=== PATIENT | female | born 1935 | race Caucasian/White ===

== ENCOUNTER → 2018-04-25 | Outpatient (CLI) | payer MEDICARE, BC ==
--- NOTE | 2018-04-25 13:24 | MM ---
Reason for exam: additional evaluation requested from prior study. Last mammogram was performed 3 years and 2 months ago. History: Patient is postmenopausal and has history of breast cancer at age 52. Family history of breast cancer in sister at age 52. Excisional biopsy of the right breast, 1990. Mastectomy of the left breast, 1986. Physical Findings: Nurse did not find any significant physical abnormalities on exam. MG 3D Diag Mammo W/Cad RT CC and MLO view(s) were taken of the right breast. Prior study comparison: February 20, 2015, right breast MG diagnostic mammo RT w CAD. February 13, 2014, right breast MG diagnostic mammo RT w CAD. The breast tissue is heterogeneously dense. This may lower the sensitivity of mammography. There are benign appearing round calcifications in the right breast. There is chronic nodularity in the right breast. There is no discrete abnormality. These results were verbally communicated with the patient and result sheet given to the patient on 04/25/18. ASSESSMENT: Benign, BI-RAD 2 RECOMMENDATION: Follow-up diagnostic mammogram of the right breast in 1 year.
== END ==
LOC: RADMAMWWP 12:30
PROVIDERS: ATTEND Internal Medicine Geriatric Medicine
DX: Z08 Encounter for follow-up examination after completed treatment for malignant neoplasm (principal); Z85.3 Personal history of malignant neoplasm of breast
CPT/HCPCS: 77065; G0279; 77061

== ENCOUNTER → 2019-06-14 | Outpatient (CLI) | payer MEDICARE, BC ==
--- NOTE | 2019-06-14 14:08 | MM ---
Reason for exam: additional evaluation requested from prior study. Last mammogram was performed 1 year and 2 months ago. History: Patient is postmenopausal and has history of breast cancer at age 52. Family history of breast cancer in sister at age 52. Excisional biopsy of the right breast, 1990. Mastectomy of the left breast, 1986. Physical Findings: Nurse did not find any significant physical abnormalities on exam. MG 3D Diag Mammo W/Cad RT CC and MLO view(s) were taken of the right breast. Prior study comparison: April 25, 2018, right breast MG 3d diag mammo w/cad RT. February 20, 2015, right breast MG diagnostic mammo RT w CAD. There are scattered fibroglandular densities. No suspicious abnormality. No significant new findings when compared with previous films. These results were verbally communicated with the patient and result sheet given to the patient on 06/14/19. ASSESSMENT: Negative, BI-RAD 1 RECOMMENDATION: Follow-up diagnostic mammogram of the right breast in 1 year.
== END | disposition home or self-care (01) ==
LOC: RADMAMWWP 12:55
PROVIDERS: ATTEND Internal Medicine Geriatric Medicine
DX: Z08 Encounter for follow-up examination after completed treatment for malignant neoplasm (principal); Z85.3 Personal history of malignant neoplasm of breast
CPT/HCPCS: 77065; G0279; 77061

== ENCOUNTER → 2020-08-20 | Outpatient (CLI) | payer MEDICARE, BC ==
--- NOTE | 2020-08-20 11:46 | MM ---
Reason for exam: additional evaluation requested from prior study. Last mammogram was performed 1 year and 2 months ago. History: Patient is postmenopausal and has history of breast cancer at age 52. Family history of breast cancer in sister at age 52. Excisional biopsy of the right breast, 1990. Mastectomy of the left breast, 1986. Physical Findings: Nurse did not find any significant physical abnormalities on exam. MG 3D Diag Mammo W/Cad RT CC and MLO view(s) were taken of the right breast. Prior study comparison: June 14, 2019, right breast MG 3d diag mammo w/cad RT. April 25, 2018, right breast MG 3d diag mammo w/cad RT. The breast tissue is heterogeneously dense. This may lower the sensitivity of mammography. No significant new findings when compared with previous films. These results were verbally communicated with the patient and result sheet given to the patient on 08/20/20. ASSESSMENT: Negative, BI-RAD 1 RECOMMENDATION: Routine screening mammogram of the right breast in 1 year.
== END | disposition home or self-care (01) ==
LOC: RADMAMWWP 10:55
PROVIDERS: ATTEND Internal Medicine Geriatric Medicine
DX: R92.2 Inconclusive mammogram (principal); Z78.0 Asymptomatic menopausal state; Z80.3 Family history of malignant neoplasm of breast; Z85.3 Personal history of malignant neoplasm of breast
CPT/HCPCS: 77065; G0279; 77061

== ENCOUNTER → 2020-11-27 | Outpatient (CLI) | payer MEDICARE, BC ==
[2020-11-28 06:21] LABS: Thyroid Peroxidase Antibodies 29.8 U/mL (0.0-60.0)
== END | disposition home or self-care (01) ==
LOC: LABWHC1 14:24
PROVIDERS: ATTEND Internal Medicine Endocrinology, Diabetes & Metabolism
DX: E04.2 Nontoxic multinodular goiter (principal); E03.9 Hypothyroidism, unspecified
CPT/HCPCS: 36415; 84439; 84443; 86376; 86800

== ENCOUNTER → 2021-09-10 | Outpatient (CLI) | payer MEDICARE, BC ==
--- NOTE | 2021-09-11 12:17 | MM ---
Reason for exam: screening (asymptomatic). Last mammogram was performed 1 year and 1 month ago. History: Patient is postmenopausal and has history of breast cancer at age 52. Family history of breast cancer in sister at age 52. Excisional biopsy of the right breast, 1990. Mastectomy of the left breast, 1986. Physical Findings: A clinical breast exam by your physician is recommended on an annual basis and results should be correlated with mammographic findings. MG 3D Scr Darcy Unilateral W/Cad CC and MLO view(s) were taken of the right breast. Prior study comparison: August 20, 2020, right breast MG 3d diag mammo w/cad RT. June 14, 2019, right breast MG 3d diag mammo w/cad RT. There are scattered fibroglandular densities. There are benign appearing round calcifications in the right breast. There is chronic nodularity in the right breast anteriorly, stable. There is no new dominant lesion. ASSESSMENT: Benign, BI-RAD 2 RECOMMENDATION: Routine screening mammogram of the right breast in 1 year.
== END | disposition home or self-care (01) ==
LOC: RADMAMWWP 11:02
PROVIDERS: ATTEND Internal Medicine Geriatric Medicine
DX: Z12.31 Encounter for screening mammogram for malignant neoplasm of breast (principal); R92.8 Other abnormal and inconclusive findings on diagnostic imaging of breast
CPT/HCPCS: 77067

== ENCOUNTER → 2021-10-23 | Outpatient (CLI) | payer MEDICARE, BC ==
[2021-10-23 09:21] LABS: ALT 19 U/L (4-34); AST 29 U/L (14-36); African American GFR (CKD) >90 (>60 ml/min/1.73 sqM); Albumin 4.6 g/dL (3.5-5.0); Alkaline Phosphatase 96 U/L (38-126); Anion Gap 12 mmol/L; Blood Urea Nitrogen 16 mg/dL (7-17); Calcium 9.3 mg/dL (8.4-10.2); Carbon Dioxide 25 mmol/L (22-30); Chloride 100 mmol/L (98-107); Glucose 73 mg/dL (74-99); Non-African American GFR(CKD) 82 (>60 ml/min/1.73 sqM); Potassium 4.8 mmol/L (3.5-5.1); Sodium 137 mmol/L (137-145); Total Bilirubin 0.5 mg/dL (0.2-1.3); Total Protein 7.5 g/dL (6.3-8.2)
[2021-10-23 09:35] LABS: Basophils # (A) 0.1 k/uL (0-0.2); Basophils % (A) 1 %; Eosinophils # (A) 0.2 k/uL (0-0.7); Eosinophils % (A) 4 %; HCT 45.1 % (34.0-46.0); HGB 13.9 gm/dL (11.4-16.0); Hypochromasia Slight; Lymphocytes # (A) 0.7 k/uL (1.0-4.8); Lymphocytes % (A) 11 %; MCH 29.6 pg (25.0-35.0); MCHC 30.7 g/dL (31.0-37.0); MCV 96.3 fL (80.0-100.0); Mean Platelet Volume 8.3; Monocytes # (A) 0.5 k/uL (0-1.0); Monocytes % (A) 8 %; Neutrophils # (A) 4.6 k/uL (1.3-7.7); Neutrophils % (A) 75 %; Platelet Count 263 k/uL (150-450); RBC 4.69 m/uL (3.80-5.40); RDW 13.3 % (11.5-15.5); WBC 6.2 k/uL (3.8-10.6)
[2021-10-23 09:37] LABS: T4, Free (Free Thyroxine) 0.92 ng/dL (0.78-2.19)
[2021-10-23 14:26] LABS: Estimated Average Glucose UNC
--- NOTE | 2021-10-23 16:07 | BD ---
EXAMINATION TYPE: Axial Bone Density DATE OF EXAM: 10/23/2021 COMPARISON: 02/20/2015 CLINICAL HISTORY: 85 years year old Female. ICD-10 CODE: AGE-RELATED OSTEOPOROSIS Height: 61 IN Weight: 173 LBS FRAX RISK QUESTIONS: History of Fracture in Adulthood: RT FOREARM AGE 70; LT FOREARM AGE 58; RT TIB/FIB AGE 56; LT TIB/FIB AGE 58 RISK FACTORS HISTORY OF: History of Wrist Fracture: RT AGE 70; LT AGE 58 Active: YES Postmenopausal woman: AGE 45 Lost more than 2 inches in height since high school: YES 05/17" MEDICATIONS: Thyroid Medications: YES Which medication: Synthroid How Lon YEARS Additional Medications: CALCIUM, VIT D, SYNTHROID, VIT B, VIT C, Additional History: BREAST CANCER EXAM MEASUREMENTS: Bone mineral densitometry was performed using the [employer] System. Bone mineral density as measured about the Lumbar spine is: ----- L1-L4(G/cm2): 1.195 T Score Values are as follows: ----- L1: 0.8 ----- L2: -0.8 ----- L3: -0.4 ----- L4: 0.7 ----- L1-L4: 0.1 Bone mineral density has: Increased 1.6% since study of: 02/20/2015 Bone mineral density about the R hip (g/cm2): 0.674 Bone mineral density about the L hip (g/cm2): 0.687 T Score values are as follows: -----R Neck: -2.6 -----L Neck: -2.5 -----R Total: -1.9 -----L Total: -1.7 Bone mineral density has: Decreased -6.3% since study of: 02/17/2015 FRAX%s: The graph provided illustrates a 9.2 chance for a major osteoporotic fx and a 3.0 chance for the hips probability for fx in 10 years time. IMPRESSION: Osteoporosis (T Score less than -2.5). There is increased fracture risk and therapy is usually indicated based on age. Re-Screen 1-2 years. NOTE: T-SCORE=SD OF THE YOUNG ADULT MEAN.
[2021-10-23 19:15] LABS: Chol/HDL Ratio 2.33 Ratio; LDL Cholesterol,Calculated 112.3 mg/dL (0.0-131.0); VLDL Calculation 12.78 mg/dL (5.00-40.00)
== END | disposition home or self-care (01) ==
LOC: RADBDWWP 07:21
PROVIDERS: ATTEND Internal Medicine Geriatric Medicine
DX: C79.81 Secondary malignant neoplasm of breast (principal); R92.8 Other abnormal and inconclusive findings on diagnostic imaging of breast; M81.0 Age-related osteoporosis without current pathological fracture; E78.2 Mixed hyperlipidemia; R73.9 Hyperglycemia, unspecified; E03.9 Hypothyroidism, unspecified
CPT/HCPCS: 36415; 77080; 80053; 80061; 82306; 83036; 84439; 84443; 85025

== ENCOUNTER → 2021-12-02 | Outpatient (CLI) | payer MEDICARE, BC ==
[2021-12-03 02:57] LABS: T4, Free (Free Thyroxine) 1.02 ng/dL (0.800-1.800)
--- NOTE | 2021-12-03 08:58 | US ---
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 Multinodular goiter. TECHNIQUE: Multiple sonographic images of the thyroid gland are obtained. FINDINGS: GLAND SIZE: Right Lobe: 3.5 x 1.4 x 1.2 cm Overall Parenchyma: homogenous Left Lobe: 2.8 x 1.3 x 0.8 cm Overall Parenchyma: homogeneous Isthmus Thickness: 0.24 cm NODULES RIGHT: # of nodules measured on right: 2 1. 1.0 X 0.7 x 0.6 cm, mid lat-mid, solid or almost completely solid, isoechoic TR 3 nodule, which is wider than tall, with smooth margins, without echogenic foci. Prior size: no prior 2. 0.4 X 0.3 x 0.3 cm, tiny TR 4 hypoechoic nodule which is as wide as it is tall, with ill-defined margins, without echogenic foci. Prior size: no prior LEFT: # of nodules measured on left: 1 1. 0.4 X 0.2 x 0.3 cm, lower mid, benign cyst. Prior size: no prior ISTHMUS: # of nodules measured in the isthmus: 1 1. 0.7 X 0.6 x 0.3 cm solid or almost completely solid, TR 4 hypoechoic nodule, which is wider than tall, with smooth margins, without echogenic foci. Prior size: no prior Bilateral neck scanned, no evidence of lymphadenopathy. IMPRESSION: A couple nodules on either side measuring up to 1 cm (TR 3 nodule) on the right and 7 mm (TR 4 nodule ) in the right thyroid isthmus. Follow-up can be performed.
== END | disposition home or self-care (01) ==
LOC: RADUSWWP 15:07
PROVIDERS: ATTEND Internal Medicine Endocrinology, Diabetes & Metabolism
DX: E04.2 Nontoxic multinodular goiter (principal); E03.9 Hypothyroidism, unspecified
CPT/HCPCS: 76536; 82306; 84439; 84443

== ENCOUNTER → 2022-09-15 | Outpatient (CLI) | payer MEDICARE, BC ==
--- NOTE | 2022-09-16 06:37 | MM ---
Reason for Exam: Screening (asymptomatic). Last mammogram was performed 1 year(s) and 1 month(s) ago. Patient History: Menarche at age 11. First Full-Term at age 25. Postmenopausal. Breast cancer, left, age 52. 1986, Mastectomy on the Left side. 1990, Excisional Biopsy on the Right side. Sister had breast cancer, age 52. Prior Study Comparison: 06/14/2019 Right Diagnostic Mammogram, [facility]. 08/20/2020 Right Diagnostic Mammogram, [facility]. 09/10/2021 Bilateral Screening Mammogram, [facility]. Tissue Density: Right: There are scattered fibroglandular densities. Findings: Occasional tiny benign-appearing round calcification in the right breast is identified. There is no suspicious group of microcalcifications or new suspicious mass in the right breast. Overall Assessment: Benign, BI-RAD 2 Management: Screening Mammogram of the right breast. . Patient should continue monthly self-breast exams. A clinical breast exam by your physician is recommended on an annual basis. This exam should not preclude additional follow-up of suspicious palpable abnormalities. Note on Araceli scores and lifetime risk: 1. A Araceli score greater than 3% is considered moderate risk. If this is the case, consider specialist referral to assess eligibility for a risk reducing agent. 2. If overall lifetime risk for the development of breast cancer is 20% or higher, the patient may qualify for future screening with alternating mammogram and breast MRI. Electronically signed and approved by: Primo Jones M.D.
== END | disposition home or self-care (01) ==
LOC: RADMAMWWP 11:01
PROVIDERS: ATTEND Internal Medicine Geriatric Medicine
DX: Z12.31 Encounter for screening mammogram for malignant neoplasm of breast (principal); Z80.3 Family history of malignant neoplasm of breast; Z85.3 Personal history of malignant neoplasm of breast
CPT/HCPCS: 77067

== ENCOUNTER → 2023-11-02 | Outpatient (CLI) | payer MEDICARE, BC ==
--- NOTE | 2023-11-03 10:12 | MM ---
Reason for Exam: Screening (asymptomatic). Last mammogram was performed 1 year(s) and 1 month(s) ago. Patient History: Menarche at age 11. First Full-Term at age 25. Postmenopausal. Breast cancer, left, age 52. 1986, Mastectomy on the Left side. 1990, Excisional Biopsy on the Right side. Sister had breast cancer, age 52. Prior Study Comparison: 08/20/2020 Right Diagnostic Mammogram, [facility]. 09/10/2021 Bilateral Screening Mammogram, [facility]. 09/15/2022 Right MG 3D scr jenna unilateral w/cad., [facility]. Tissue Density: Right: The breasts are heterogeneously dense, which may obscure small masses. Findings: Analyzed By CAD. There is no suspicious group of microcalcifications or new suspicious mass in the right breast. Overall Assessment: Negative, BI-RAD 1 Management: Screening Mammogram of the right breast in 1 year. . Patient should continue monthly self-breast exams. A clinical breast exam by your physician is recommended on an annual basis. This exam should not preclude additional follow-up of suspicious palpable abnormalities. Note on Araceli scores and lifetime risk: 1. A Araceli score greater than 3% is considered moderate risk. If this is the case, consider specialist referral to assess eligibility for a risk reducing agent. 2. If overall lifetime risk for the development of breast cancer is 20% or higher, the patient may qualify for future screening with alternating mammogram and breast MRI. Electronically signed and approved by: Kenny Padilla M.D. Radiologis
--- NOTE | 2023-11-03 11:37 | BD ---
EXAMINATION TYPE: Axial Bone Density DATE OF EXAM: 11/02/2023 CLINICAL HISTORY: 87 years old Female. ICD-10 CODE: M81.0 AGE-RELATED OSTEOPOROSIS Height: 60 Weight: 166.9 FRAX RISK QUESTIONS: Alcohol (3 or more units per day): no Family History (Parent hip fracture): no Glucocorticoids (More than 3mos): no (Ex: prednisone, prednisolone, methylprednisolone, dexamethasone, and hydrocortisone). History of Fracture in Adulthood: yes Secondary Osteoporosis: 1. Type 1 Diabetes: no 2. Hyperthyroidism: no 3. Menopause before 45: no 4. Malnutrition: no 5. Chronic liver disease: no Rheumatoid Arthritis: no Current Tobacco Use: no RISK FACTORS HISTORY OF: History of Wrist Fracture: bilateral wrist Surgery to Spine/Hip(right/left)/Wrist (right/left): no EXAM MEASUREMENTS: Bone mineral densitometry was performed using the [employer] System. Bone mineral density as measured about the Lumbar spine is: ----- L1-L4(G/cm2): 1.306 T Score Values are as follows: ----- L1: 0.6 ----- L2: 1.1 ----- L3: 0.9 ----- L4: 1.4 ----- L1-L4: 1.0 Z Score Values are as follows: ----- L1: 2.1 ----- L2: 2.6 ----- L3: 2.5 ----- L4: 2.9 ----- L1-L4: 2.6 Bone mineral density has: increased 9.3 % since study of: 10.23.2021 Bone mineral density about the R hip (g/cm2): 0.767 Bone mineral density about the L hip (g/cm2): 0.775 T Score values are as follows: -----R Neck: -2.7 -----L Neck: -2.3 -----R Total: -1.9 -----L Total: -1.8 Z Score values are as follows: -----R Neck: -0.5 -----L Neck: -0.1 -----R Total: 0.2 -----L Total: 0.3 Bone mineral density has: decreased-1.4 % since study of: 6.10.2021 FRAX%s: The graph provided illustrates a 23.9% chance for a major osteoporotic fx and a 8.3% chance f or the hips probability for fx in 10 years time. IMPRESSION: Osteopenia (T Score between -2.5 and -1). There is slightly increased risk of fracture and the patient may be considered for treatment. Re-Screen 2-5 years. NOTE: T-SCORE=SD OF THE YOUNG ADULT MEAN.
== END | disposition home or self-care (01) ==
LOC: RADMAMWWP 12:06
PROVIDERS: ATTEND Internal Medicine Geriatric Medicine
DX: Z12.31 Encounter for screening mammogram for malignant neoplasm of breast (principal); M81.0 Age-related osteoporosis without current pathological fracture; M85.852 Other specified disorders of bone density and structure, left thigh; Z80.3 Family history of malignant neoplasm of breast; Z78.0 Asymptomatic menopausal state; Z85.3 Personal history of malignant neoplasm of breast; Z90.12 Acquired absence of left breast and nipple
CPT/HCPCS: 77067; 77080

== ENCOUNTER → 2023-11-24 | Outpatient (CLI) | payer MEDICARE, BC ==
[2023-11-24 19:05] LABS: T4, Free (Free Thyroxine) 1.18 ng/dL (0.80-1.80)
--- NOTE | 2023-11-24 22:52 | US ---
EXAMINATION TYPE: US thyroid st tissue head/neck DATE OF EXAM: 11/24/2023 COMPARISON: US 12/02/2021 CLINICAL INDICATION: Female, 87 years old with history of E04.2 NONTOXIC MULTINODULAR GOITER; Goiter. Patient takes synthroid. GLAND SIZE: Right Lobe: 3.5 x 1.1 x 1.3 cm Overall Parenchyma: slightly heterogeneous Left Lobe: 2,7 x 1.2 x 1.0 cm Overall Parenchyma: slightly heterogeneous Isthmus Thickness: 0.2 cm NODULES RIGHT: # of nodules measured on right: 1. Additional less than 5 mm nodules seen, not fully measure d. 1. 1.1 X 0.8 x 0.6 cm, upper mid, solid or almost completely solid, isoechoic nodule, which is wide r than tall, with smooth margins, without echogenic foci. TR 3 Prior size: 1.0 x 0.7 x 0.6 cm LEFT: # of nodules measured on left: 1. Additional less than 5 mm nodules seen, not fully measur ed. 1. 0.4 X 0.3 x 0.3 cm, lower mid, cystic or almost completely cystic, anechoic nodule, which is as wide as it is tall, with smooth margins, without echogenic foci. Prior size: 0.4 x 0.2 x 0.3 cm ISTHMUS: # of nodules measured in the isthmus: 1 1. 0.8 X 0.6 x 0.4 cm solid or almost completely solid, hypoechoic nodule, which is wider than tall , with smooth margins, without echogenic foci. Prior size: 0.7 x 0.6 x 0.3 cm Bilateral neck scanned, no evidence of lymphadenopathy. IMPRESSION: Bilateral subcentimeter nodules thyroid
== END | disposition home or self-care (01) ==
LOC: RADUSWWP 12:06
PROVIDERS: ATTEND Internal Medicine Endocrinology, Diabetes & Metabolism
DX: E04.2 Nontoxic multinodular goiter (principal)
CPT/HCPCS: 76536; 82306; 84439; 84443

== ENCOUNTER → 2024-11-07 | Outpatient (CLI) | payer MEDICARE, BC ==
--- NOTE | 2024-11-07 13:46 | MM ---
Reason for Exam: Hx of breast cancer, mastectomy. Last screening mammogram was performed 12 month(s) ago. Patient History: Menarche at age 11. First Full-Term at age 25. Postmenopausal. Breast cancer, left, age 52. 1986, Mastectomy on the Left side. 1990, Excisional Biopsy on the Right side. Sister had breast cancer, age 52. Prior Study Comparison: 09/10/2021 Bilateral Screening Mammogram, [facility]. 09/15/2022 Right MG 3D scr jenna unilateral w/cad., [facility]. 11/02/2023 Right MG 3D scr jenna unilateral w/cad., [facility]. Tissue Density: Right: There are scattered areas of fibroglandular density. Findings: Analyzed By CAD. Right breast: There is no suspicious group of microcalcifications or new suspicious mass. Left breast: There is no suspicious group of microcalcifications or new suspicious mass. Overall Assessment: Negative, BI-RAD 1 Management: Screening Mammogram of both breasts in [address] [facility] will attempt to contact patient to return for supplemental views and ultrasound if indicated. Patient should continue monthly self-breast exams. A clinical breast exam by your physician is recommended on an annual basis. This exam should not preclude additional follow-up of suspicious palpable abnormalities. Note on Araceli scores and lifetime risk: 1. A Araceli score greater than 3% is considered moderate risk. If this is the case, consider specialist referral to assess eligibility for a risk reducing agent. 2. If overall lifetime risk for the development of breast cancer is 20% or higher, the patient may qualify for future screening with alternating mammogram and breast MRI. [facility], , 11/07/2024 1:43 PM. Electronically signed and approved by: Eran Hall DO
[2024-11-07 20:01] LABS: T4, Free (Free Thyroxine) 1.06 ng/dL (0.80-1.80)
== END | disposition home or self-care (01) ==
LOC: RADMAMWWP 12:55
PROVIDERS: ATTEND Internal Medicine Geriatric Medicine
DX: Z12.31 Encounter for screening mammogram for malignant neoplasm of breast (principal); R92.321 Mammographic fibroglandular density, right breast; Z78.0 Asymptomatic menopausal state; Z80.3 Family history of malignant neoplasm of breast; Z95.3 Presence of xenogenic heart valve; Z90.12 Acquired absence of left breast and nipple
CPT/HCPCS: 77067; 82306; 84439; 84443